=== PATIENT | male | born 1970 | race Asian ===

== ENCOUNTER 2025-02-21 11:17 | Emergency (ER) | payer OTHER ==
[~2025-02-21] VITALS: Ht 170.2 cm; Wt 77.0 kg
[~2025-02-21 11:17] MED LIST: ASPI-1450 PO; ATOR10TA PO; LEVO-72 PO; LOSA-382 PO; METO25XL PO
[2025-02-21 11:25] VITALS: TEMP 98.5
[2025-02-21 11:47] LABS: PLATELET COUNT (AUTO) 275 K/uL (150-450); RED BLOOD CELL COUNT(AUTO) 7.51 MIL/uL (4.50-5.90); RED CELL DISTRIBUTION WIDTH 15.5 % (11.5-14.5); WHITE BLOOD COUNT (AUTO) 9.5 K/uL (4.5-11.0)
[2025-02-21 11:54] LABS: CALCIUM, TOTAL 8.7 mg/dL (8.8-10.5); CREATININE 1.02 mg/dL (0.60-1.30); GLOMERULAR FILTR. RATE CALC > 60 mL/min (>60); GLUCOSE,RANDOM 259 mg/dL (70-110); SODIUM SERUM 134 mmol/L (136-145); UREA NITROGEN, BLOOD 12 mg/dL (7-18)
[2025-02-21 11:55] LABS: RBC MORPHOLOGY COMMENT ABNORMAL RBC MORPH
[2025-02-21 12:04] LABS: TROPONIN I-HIGH SENSITIVITY 5 ng/L (<76)
[2025-02-21] MEDS: LOSARTAN POTASSIUM 50 MG TABLET PO ONE (12:12)
[2025-02-21] MEDS: METOPROLOL TARTRATE 25 MG TABLET PO ONE (12:12)
[2025-02-21] MEDS: NEOMYCIN/POLYMYXIN B/HYDROCORT 10 ML OTIC SUSPENSION AS ONE (12:12)
[2025-02-21 12:30] VITALS: BP 177/121; PULSE 79; RESP 18; O2SAT 99
== END 2025-02-21 13:00 | disposition left against medical advice (07) ==
LOC: EMS 11:23
DX: H60.92 Unspecified otitis externa, left ear (principal); I16.0 Hypertensive urgency; I10 Essential (primary) hypertension; E78.00 Pure hypercholesterolemia, unspecified; F17.210 Nicotine dependence, cigarettes, uncomplicated; Z79.82 Long term (current) use of aspirin; Z79.899 Other long term (current) drug therapy
CPT/HCPCS: 80048; 84484; 85025; 93005; 99284